=== PATIENT | female | born 1955 | race Caucasian/White ===

== ENCOUNTER 2018-08-10 09:45 | Emergency (ER) | payer OTHER ==
[2018-08-10] MEDS: LIDOCAINE 1% (MPF) 5 ML VIAL INJ (10:51)
== END 2018-08-10 12:05 | disposition home or self-care (01) ==
LOC: FTE 09:45
DX: S61.211A Laceration without foreign body of left index finger without damage to nail, initial encounter (principal); I10 Essential (primary) hypertension; E11.9 Type 2 diabetes mellitus without complications; E03.9 Hypothyroidism, unspecified; J45.909 Unspecified asthma, uncomplicated; W26.8XXA Contact with other sharp object(s), not elsewhere classified, initial encounter; Y92.9 Unspecified place or not applicable; Z79.84 Long term (current) use of oral hypoglycemic drugs; Z87.891 Personal history of nicotine dependence
CPT/HCPCS: 12002; 99283-25

== ENCOUNTER 2018-08-14 08:26 | Emergency (ER) | payer OTHER | END 2018-08-14 09:42 | disposition home or self-care (01) | LOC: FTE 08:26 | DX: Z48.01 Encounter for change or removal of surgical wound dressing (principal); I10 Essential (primary) hypertension; J45.909 Unspecified asthma, uncomplicated; E03.9 Hypothyroidism, unspecified; Z87.891 Personal history of nicotine dependence; Z79.84 Long term (current) use of oral hypoglycemic drugs | CPT/HCPCS: 99282; Z7502 ==